=== PATIENT | male | born 2000 | race Hispanic/Latino ===

== ENCOUNTER 2023-03-29 06:52 | Observation (INO) | payer OTHER, SELFPAY ==
[2023-03-29 07:05] VITALS: BP 124/65; PULSE 62; RESP 14; TEMP 36.6; O2SAT 98
--- NOTE | 2023-03-29 07:31 | ADMGEN ---
This patient, Amauri Singh, was admitted directly to [address] [place] [address] Room 322-02 at 0653. Patient/family oriented to hospital policies and general routines including ID bracelet, bed and alarms, visiting hours, pain management, procedures, bathroom and other care routines, personal items, smoking policy, room service/diet, and visiting hours. Information on how to activate the Rapid Response Team has been discussed. Patient/Family are encouraged to report perceived risks to care and to ask questions if they do not understand what they are told or what they should do.
[2023-03-29 07:44] VITALS: BMI 28.3
--- NOTE | 2023-03-29 08:54 | PM.SD2 ---
Same Day Admit/Disch: HPI History of Present Illness Chief complaint: Acute Appendicitis Narrative: Amauri Singh is a 23 year old male who does not speak Chinese. He prefers to have his sister translate for him rather than the remote translation. He is very healthy and works construction. Three days ago, he developed right lower quadrant abdominal pain. He had nausea but no vomiting. The pain started in the right lower quadrant and stay there. The pain got worse over 3 days and it was extremely tender. He went to the emergency room at [place] last night. Exam there showed right lower quadrant tenderness with some evidence of guarding. [place] [id number]. His urinalysis was negative. CT scan of the abdomen and pelvis per the report at [place] showed uncomplicated acute appendicitis and was otherwise negative. He transferred here about 2 hours ago. He continues to have pain but it is less than before. He did get analgesics at the emergency room at [place] just prior to his transfer. He is seen now regarding presumptive diagnosis of acute appendicitis. [facility] Social History Social History Smoking status: Never smoker Second hand tobacco smoke exposure: No Alcohol intake: current Drinks per week: 1 Substance use: never Substance use type: does not use Lack of Transportation: No Lack of Food: Never True Current Housing: I Have Housing Concerned About Future Housing: No Difficulty Paying Gas/Electric Bills: No Difficulty Paying for Meds: No Currently Unemployed: No Education: Grade School Difficulty w/ Childcare or Family Care: No Spiritual care concerns: No Same Day Admit/Disch: Med Pre-admit Medications Home Medications Medication Instructions Recorded Confirmed Type oxycodone-acetaminophen 5 mg-325 0.5 - 1 tablet PO Q6H PRN pain #10 03/29/23 Rx mg tablet tabs Review of Systems Review of Systems All systems reviewed & are unremarkable except as noted in HPI and below (HPI and those items noted below) Constitutional Constitutional: Denies chills and Denies fever(s) Cardiovascular Cardiovascular: Denies chest pain, Denies diaphoresis, Denies dyspnea and Denies paroxysmal nocturnal dyspnea Respiratory Respiratory: Denies chest congestion, Denies cough and Denies dyspnea Integumentary/Breasts Skin/Breast: Denies lesions and Denies rash Exam Const: General: comfortable, no acute distress, alert and awake HENMT: Head: normocephalic and atraumatic Mouth: Yes Normal oral and palatal mucosa present Eyes: Conjunctivae: conjunctivae normal Pupils: Equal, round and reactive pupils present EOM: EOMs intact bilaterally Neck: Neck: normal visual inspection, no lymphadenopathy and nontender Resp: Effort & Inspection: normal respiratory effort Auscultation: clear to auscultation bilaterally Cardio: Rate: regular rate Rhythm: regular rhythm Heart sounds: no gallops, no murmurs and no rubs GI: Inspection: normal to inspection, non-distended and no scars GI Palp: Yes Soft to palpation, Yes Tenderness to palpation present (GI) (Right lower quadrant, mild), No Guarding due to palpation present (GI), No Hepatomegaly present, No Splenomegaly present, No Hernia present, No Palpable mass present and No Ascites present Auscultation: Hypoactive bowel sounds present Skin: Lesions: no lesions Rashes: no rashes Neuro: General: no focal motor deficits and CN's II-XI intact bilaterally Cranial nerves: Yes Equal, round and reactive pupils present, Yes Bilaterally intact EOM present, Yes facial symmetry and Yes Midline tongue present Speech: normal speech Motor exam (neuro): 5/5 motor strength present throughout and Motor abnormalities not present Extrem: General: no clubbing, cyanosis or edema and edema Psych: Affect: normal affect Thought process: Normal thought process present Insight: Good insight pr
--- NOTE | 2023-03-29 09:00 | WPDHPUPDATE1 ---
History and Physical Update Update Date/Time: 03/29/23 09:00 History and Physical has been reviewed, including an updated exam of the patient. There are NO changes in the patient's condition. Risks, benefits, and alternatives have been discussed and questions answered. Patient agrees to proceed with procedure.
--- NOTE | 2023-03-29 09:01 | ADMGEN ---
This patient, Amauri Singh, was admitted to [facility] S[facility] Room 322-02. Patient/family oriented to hospital policies and general routines including ID bracelet, bed and alarms, visiting hours, pain management, procedures, bathroom and other care routines, personal items, smoking policy, room service/diet, and visiting hours. Information on how to activate the Rapid Response Team has been discussed. Patient/Family are encouraged to report perceived risks to care and to ask questions if they do not understand what they are told or what they should do. arrival at 0652, admission done at 0745
--- NOTE | 2023-03-29 09:35 | PC.NURSE ---
This RN transferred the pt from 3 MS to OR.
[2023-03-29] MEDS: LACTATED RINGERS 1,000 ML 30 ML IV CONT (09:40)
--- NOTE | 2023-03-29 09:41 | WPDANESEPPF ---
Anes - Initial Pre Proc Eval Procedure: Operation Date: 03/29/23 09:30 Proposed Procedures p Laparoscopic Appendectomy - Nile Schwartz MD Date/Time: 03/29/23 09:41 Surgeon: Nile Schwartz MD Pre Op Diagnosis: Acute Appendicitis Patient Data Age: 23 Gender: M Height: 1.68 m Weight: 79.7 kg Last Vital Signs Temp 36.6 C 03/29/23 07:05 Pulse 62 03/29/23 07:05 Resp 14 03/29/23 07:05 BP 124/65 03/29/23 07:05 Pulse Ox 98 03/29/23 07:05 O2 Del Method Room Air 03/29/23 08:02 Patient hx anesthesia problems: none Family hx anesthesia problems: none Results Review: All pre-operative results and documents have been reviewed as part of the pre-operative evaluation. [facility] Social History Social History Smoking status: Never smoker Second hand tobacco smoke exposure: No Alcohol intake: current Drinks per week: 1 Substance use: never Substance use type: does not use Lack of Transportation: No Lack of Food: Never True Current Housing: I Have Housing Concerned About Future Housing: No Difficulty Paying Gas/Electric Bills: No Difficulty Paying for Meds: No Currently Unemployed: No Education: Grade School Difficulty w/ Childcare or Family Care: No Spiritual care concerns: No Anes - Eval Final PreProcedure Day of Procedure 03/29/23 09:41 Patient weight: overweight Heart: regular rate and rhythm Lungs: clear to auscultation Airway: Mallampati scale class II Neurological: other (alert) Last oral intake: >/= 8 hours ASA classification: II Emergent: yes Anesthetic plan: proceed Anesthesia type and monitoring: general ETT and standard monitoring Other findings: interpretation per sister no questions or concerns Results Review: All pre-operative results and documents have been reviewed as part of the pre-operative evaluation. Informed Consent: The patient's anesthetic plan and its attendant risks and benefits were discussed with the patient/family/POA. Questions were solicited and answers provided to the satisfaction of the patient/family/POA.
[2023-03-29] MEDS: ceFAZolin 2 GM/D5W 50 ML 2 GM/50 ML BAG IVPB (09:45)
[2023-03-29] MEDS: BUPIVACAINE/EPINEPHRINE 0.5% 50 ML VIAL 20 ML INFILTRATE (10:22)
[2023-03-29] MEDS: metroNIDAZOLE 500 MG/ISO 100ML 500 MG/100 ML BAG 100 MG IVPB (10:26)
--- NOTE | 2023-03-29 10:56 | P.OP_ITS ---
Procedure Note - Detailed Date of Procedure 03/29/23 Pre-op Diagnosis Acute Appendicitis Post-op Diagnosis Same Procedure Performed Laparoscopic appendectomy Surgeon Nile Schwartz MD [employer] Liam DARNELL Anesthesia General and Local Indications Patient has a 3 day history of right lower quadrant abdominal pain and nausea. He went to the emergency room at [place] and was noted to have right lower quadrant tenderness and an elevated white count of nearly 14,000. CT scan showe d acute uncomplicated appendicitis. He transferred here to [place] and is taken to surgery now for laparoscopic appendectomy. Findings Acute non perforated appendicitis Description of Procedure Patient was taken to surgery and induced into general anesthesia. The abdomen is prepped and draped. Trocars were placed in the usual fashion using local anesthesia and applied Medical optical trocars. A 5 mm camera was used. A 10 11 trocar was placed in the left lower quadrant. Patient was placed in Trendelenburg with the right-side elevated. The appendix was easily visualized. It had omentum stuck to its distal half. This was more less peeled off as it was quite stuck with inflammatory adhesion. Once the omentum had been removed, the adherent surface was cauterized to ensure hemostasis. We then elevated the appendix and began dissection in the mesoappendix which was quite thick. We ca refully dissected through the mesoappendix and found the appendiceal artery. I dissected around the appendiceal artery. I then thoroughly cauterized and divided the appendiceal artery. I further dissected the base of the appendix until it was skeletonized. A Vicryl endoloop was then used to ligate the appendix at its base. The appendix was amputated just above the ligature. The mucosa of the appendiceal stump was thoroughly cauterized. The appendix was placed immediately in an Endo catch bag. The Endo-Catch bag was retrieved with the appendix via the left lower quadrant trocar site. We then replaced the left lower quadrant trocar. We reviewed the appendiceal stump in all areas of dissection. Any residual fluid was suctioned away. There was no evidence of bleeding or other issues. We then evacuated CO2 and removed the trocar sleeves. The fascia at the 10 11 left lower quadrant trocar site was closed with a [id number] mattress suture of 0 Vicryl. The subQ was closed with 3-0 Vicryl sutures. All skin incisions were closed with running 4-0 Monocryl skin suture. The wounds were dressed with Exofin surgical adhesive. Patient was then awakened and taken to recovery in good condition. Sponge needle counts were correct x2 Estimated Blood Loss -5 Drains No Packing No Pathology Yes (Appendix) Complications No immediate complications Condition Stable Disposition PACU [facility] Billing Surgery - Charge Forward: Surgery Billing (Laparoscopic appendectomy)
[2023-03-29 11:00] VITALS: BP 124/79; PULSE 66; RESP 16; TEMP 36.4; O2SAT 100
[2023-03-29 11:15] VITALS: BP 136/78; PULSE 61; RESP 12; O2SAT 99
[2023-03-29 11:30] VITALS: BP 120/68; PULSE 65; RESP 13; O2SAT 99
[2023-03-29 11:45] VITALS: BP 136/87; PULSE 63; RESP 12; O2SAT 100
[2023-03-29 14:00] VITALS: BP 128/81; PULSE 62; RESP 14; TEMP 36.6; O2SAT 100
== END 2023-03-29 16:50 | disposition home or self-care (01) ==
PROVIDERS: Admitting Provider Surgery; Visit Provider Surgery
PROC: 0DTJ4ZZ Resection of Appendix, Percutaneous Endoscopic Approach (ICD-10-PCS; CPT 44970; principal; 2023-03-29 09:30)
DX: K35.32 Acute appendicitis with perforation, localized peritonitis, and gangrene, without abscess (principal); D72.829 Elevated white blood cell count, unspecified; F10.90 Alcohol use, unspecified, uncomplicated; Z79.891 Long term (current) use of opiate analgesic
CPT/HCPCS: 44970; 88304; 99199; J0330; J0690; J1100; J1170; J1200; J1836; J2250; J2405; J2704; J3010; J7030; J7120